=== PATIENT | female | born 1975 | race Caucasian/White ===

== ENCOUNTER → 2020-12-16 | Outpatient (CLI) | payer OTHER ==
[~2020-12-16] MED LIST: ADIPEX-P37.5 MG PO; AUGMENTIN 875-1 EACH PO; BUSPAR 10MG10 MG PO; CELEXA20 MG PO; DEPAKOTE ER500 MG PO; ELAVIL 25 MG TA25 MG PO; IMITREX100 MG PO; KLONOPIN TAB 00.5 MG PO; MAGNESIUM OXID250 MG PO; MULTIVITAMINS1 EAC1 PO; PROAIR HFA8.5 GM INH; PROPRANOLOL HCL40 MG PO; PROTONIX40 MG PO; SINGULAIR10 MG PO; SPRINTEC 28 DA1 EACH PO; TRAZODONE HCL50 MG PO; VISTARIL 50 MG50 MG PO; VITAMIN B12-FO1 EACH PO; VITAMIN D350000 UNIT PO; ZANAFLEX4 MG PO
== END ==
LOC: KOH-I 14:28
DX: D34 Benign neoplasm of thyroid gland (principal); J32.9 Chronic sinusitis, unspecified; J32.0 Chronic maxillary sinusitis; E04.2 Nontoxic multinodular goiter; J34.2 Deviated nasal septum
CPT/HCPCS: 70486; 76536